=== PATIENT | female | born 1985 | race Hispanic/Latino ===

== ENCOUNTER 2022-04-22 13:32 | Emergency (ER) | payer SELFPAY ==
[2022-04-22] MEDS ORDERED: NA CHLORIDE 0.9% 1,000 ML ONE (16:26)
[2022-04-22 18:40] LABS: Hematocrit 41.2 % (36.0-45.0); Lymphocytes % 29.6 % (15.3-44.8); MPV 8.2 fL (7.6-11.3); RBC Red Blood Cell Count 4.86 M/uL (3.86-4.86)
[2022-04-22 18:53] LABS: BUN Blood Urea Nitrogen 12 mg/dL (7-18); Bicarbonate 22 mmol/L (21-32); Glomerular Filtration Rate 116 ml/min (=/>90); Glucose Level 81 mg/dL (74-106); Sodium Level 137 mmol/L (136-145)
[2022-04-22 19:07] LABS: Potassium 4.4 mmol/L (3.5-5.1)
[2022-04-22 19:25] LABS: HCG, Quantitative < 1 mIU/mL (1-3)
--- NOTE | 2022-04-22 19:26 | RAD REPORT ---
EXAM DESCRIPTION: US - Transvaginal Study Probe - 04/22/2022 7:18 pm CLINICAL HISTORY: Pelvic pain and vaginal bleeding COMPARISON: none FINDINGS: The uterus measures 7 x 3 x 4 cm. A fibroid is not seen. The uterus is retroverted. Subopt imal visualization of the endometrial stripe. No gross abnormality noted. Neither ovary seen secondary to overlying bowel gas The right and left adnexa unremarkable No significant free fluid is seen. IMPRESSION: Retroverted uterus Suboptimal evaluation of the endometrial stripe without visualization of a gross abnormality
--- NOTE | 2022-04-22 19:35 | ER ---
Nurse's Notes [facility] Name: Juliann Tolentino Age: 37 yrs Sex: Female : 1985 Arrival Date: 04/22/2022 Time: 13:34 Bed 14 Private MD: Diagnosis: Abnormal uterine and vaginal bleeding, unspecified Presentation: 04/22 14:21 Chief complaint: Patient states: heavy bleeding with clots since Tuesday; states took a vg1 test and one stated positive and another was negative. Stated the first couple of days was changing a pad every hour; states lower ABD pain. Coronavirus screen: Vaccine status: Patient reports receiving the 2nd dose of the covid vaccine. Client denies travel out of the [place] in the last 14 days. Ebola Screen: Patient denies exposure to infectious person. Patient denies travel to an Ebola-affected area in the 21 days before illness onset. Initial Sepsis Screen: Does the patient meet any 2 criteria? No. Patient's initial sepsis screen is negative. Does the patient have a suspected source of infection? No. Patient's initial sepsis screen is negative. Risk Assessment: Do you want to hurt yourself or someone else? Patient reports no desire to harm self or others. Onset of symptoms was April 19, 2022. 14:21 Method Of Arrival: Ambulatory [facility] 14:21 Acuity: CORY 3 vg1 DENTIST PRIVATE PRACTICE: 15:52 LMP 04/22/2022 ap3 Historical: - Allergies: 14:36 No Known Allergies; vg1 - PMHx: 16:52 None; ap3 - Immunization history:: Adult Immunizations unknown. - Social history:: Smoking status: unknown. Screenin:51 Abuse screen: Denies threats or abuse. Nutritional screening: No deficits noted. ap3 Tuberculosis screening: No symptoms or risk factors identified. Fall Risk None identified. Assessment: 15:52 General: Appears in no apparent distress. uncomfortable, Behavior is calm, cooperative. ap3 Pain: Complains of pain in suprapubic area. Neuro: Level of Consciousness is awake, alert, obeys commands, Oriented to person, place, time, situation, Appropriate for age Gait is steady, Speech is normal. Cardiovascular: Patient's skin is warm and dry. Respiratory: Airway is patent Respiratory effort is even, unlabored. : Vaginal discharge is bloody, Reports vaginal bleeding that is with clots, heavy flow. 16:52 Reassessment: Patient and/or family updated on plan of care and expected duration. Pain ap3 level reassessed. Patient is alert, oriented x 3, equal unlabored respirations, skin warm/dry/pink. 18:12 Reassessment: Patient and/or family updated on plan of care and expected duration. Pain ap3 level reassessed. Patient is alert, oriented x 3, equal unlabored respirations, skin warm/dry/pink. 18:54 Reassessment: Patient and/or family updated on plan of care and expected duration. Pain ap3 level reassessed. Patient is alert, oriented x 3, equal unlabored respirations, skin warm/dry/pink. 20:16 Reassessment: The provider gave the pt dc instructions using the set up worker on a cart. audie The pt acknowledged understanding. Vital Signs: 14:21 BP 152 / 100; Pulse 90; Resp 16; Temp 98.2; Pulse Ox 99% ; Weight 81.65 kg; Height 5 vg1 ft. 2 in. (157.48 cm); Pain 8/10; 18:54 BP 150 / 96; Pulse 87; Pulse Ox 100% on R/A; ap3 14:21 Body Mass Index 32.92 (81.65 kg, 157.48 cm) vg1 ED Course: 13:34 Patient arrived in ED. mr 14:23 Triage completed. vg1 14:40 Inserted saline lock: 22 gauge in right wrist, using aseptic technique. Blood collected.ap3 14:55 Enzo Castellano PA is PHCP. jm 14:55 Leandro Tay MD is Attending Physician. jmm 15:30 Enzo Castellano PA is PHCP. jmm 15:30 Leandro Tay MD is Attending Physician. jmm 15:51 Maddy Lilly, AMY is Primary Nurse. ap3 15:51 Arm band placed on right wrist. ap3 15:53 Patient has correct armband on for positive identification. Bed in low position. Call ap3 light in reach. Side rails up X 1. Adult w/ patient. Pulse ox on. NIBP on. Door closed. Noise minimized. 19:19 Transvaginal Study Probe In Process Unspecified. EDMS 19:34 Anaya Mayes MD is Referral Physician. jmm 20:14 No provider procedures requiring assistance completed. audie 20:15 intact, bleeding controlled, No redness/swelling at site. Pressure dressing applied. audie Administered Medications: 16:49 Drug: NS 0.9% 1000 ml Route: IV; Rate: 1 bolus; Site: right antecubital; ap3 Medication: 15:53 VIS not applicable for this client. ap3 Outcome: 19:35 Discharge ordered by . jmm 20:15 Condition: stable audie 20:15 Discharged to home ambulatory, with family. audie 20:15 Discharge instructions given to patient, Instructed on discharge instructions, follow up and referral plans. Demonstrated understanding of instructions, follow-up care, medications, Prescriptions given X 1. 20:17 Patient left the ED. audie Signatures: Dispatcher [employer] EDMS Enzo Castellano PA PA jmm Rivera, Mary mr LillyMaddy RN RN itz3 Lashay Shah, RN RN vg1 Bianca Vega RN RN audie
--- NOTE | 2022-04-22 19:36 | EDPHYS ---
Physician Documentation [facility] Name: Juliann Tolentino Age: 37 yrs Sex: Female : 1985 Arrival Date: 04/22/2022 Time: 13:34 Bed 14 Private MD: SARAN Physician Leandro Tay HPI: 04/22 15:30 This 37 yrs old Female presents to ER via Ambulatory with complaints of jmm Vaginal Bleeding. 15:30 The patient presents with vaginal bleeding that is. Onset: The symptoms/episode jmm began/occurred gradually, 1 month(s) ago. Modifying factors: The symptoms are alleviated by nothing, the symptoms are aggravated by nothing. Associated signs and symptoms: Pertinent positives: cramping, vaginal bleeding. The patient has not experienced similar symptoms in the past. MAIL ROOM: 15:52 LMP 04/22/2022 ap3 Historical: - Allergies: 14:36 No Known Allergies; vg1 - PMHx: 16:52 None; ap3 - Immunization history:: Adult Immunizations unknown. - Social history:: Smoking status: unknown. ROS: 15:30 Constitutional: Negative for fever, chills, and weight loss, Cardiovascular: Negative jmm for chest pain, palpitations, and edema, Respiratory: Negative for shortness of breath, cough, wheezing, and pleuritic chest pain. 15:30 : Positive for vaginal bleeding. 15:30 All other systems are negative. Exam: 15:30 Constitutional: This is a well developed, well nourished patient who is awake, alert, jmm and in no acute distress. Head/Face: atraumatic. Eyes: EOMI, no conjunctival erythema appreciated ENT: Moist Mucus Membranes Neck: Trachea midline, Supple Chest/axilla: Normal chest wall appearance and motion. Cardiovascular: Regular rate and rhythm. No edema appreciated Respiratory: Normal respirations, no respiratory distress appreciated Abdomen/GI: Non distended, soft Back: Normal ROM Skin: General appearance color normal MS/ Extremity: Moves all extremities, no obvious deformities appreciated, no edema noted to the lower extremities Neuro: Awake and alert Psych: Behavior is normal, Mood is normal, Patient is cooperative and pleasant Vital Signs: 14:21 BP 152 / 100; Pulse 90; Resp 16; Temp 98.2; Pulse Ox 99% ; Weight 81.65 kg; Height 5 vg1 ft. 2 in. (157.48 cm); Pain 8/10; 18:54 BP 150 / 96; Pulse 87; Pulse Ox 100% on R/A; ap3 14:21 Body Mass Index 32.92 (81.65 kg, 157.48 cm) vg1 MDM: 15:30 Patient medically screened. junie 19:34 Data reviewed: vital signs, nurses notes. Counseling: I had a detailed discussion with enid the patient and/or guardian regarding: the historical points, exam findings, and any diagnostic results supporting the discharge/admit diagnosis, lab results, radiology results, the need for outpatient follow up, to return to the emergency department if symptoms worsen or persist or if there are any questions or concerns that arise at home. 04/22 15:48 Order name: Abo/rh Typing; Complete Time: 19:13 [facility] 04/22 15:48 Order name: Basic Metabolic Panel; Complete Time: 19:30 [facility] 04/22 15:48 Order name: CBC with Diff; Complete Time: 19:00 [facility] 04/22 15:48 Order name: Quantitative Hcg; Complete Time: 19:30 [facility] 04/22 19:49 Order name: ABO/RH no charge; Complete Time: 20:02 [facility] 04/22 15:48 Order name: IV Saline Lock; Complete Time: 16:45 [facility] 04/22 15:48 Order name: Labs collected and sent; Complete Time: 16:45 [facility] 04/22 15:48 Order name: NPO; Complete Time: 15:54 [facility] 04/22 17:10 Order name: Labs - recollect needed: green, abo, new band; Complete Time: 18:59 04/22 19:19 Order name: Transvaginal Study Probe; Complete Time: 19:30 EDGA Administered Medications: 16:49 Drug: NS 0.9% 1000 ml Route: IV; Rate: 1 bolus; Site: right antecubital; ap3 Disposition Summary: 04/22/22 19:35 Discharge Ordered Location: Home [facility] Condition: Stable [facility] Diagnosis - Abnormal uterine and vaginal bleeding, unspecified [facility] Followup: [facility] - With: Anaya Mayes MD - When: 2 - 3 days - Reason: Recheck today's complaints, Continuance of care, Re-evaluation by your physician Discharge Instructions: - Discharge Summary Sheet [facility] - Abnormal Uterine Bleeding [facility] Forms: - Medication Reconciliation Form [facility] - Thank You Letter [facility] - Antibiotic Education [facility] - Prescription Opioid Use [facility] Prescriptions: - Ultracet 37.5-325 mg Oral Tablet - take 1 tablet by ORAL route every 6 hours - for up to 5 days; do not exceed 8 jmm tablets per day.; 12 tablet; Refills: 0, Product Selection Permitted Signatures: Dispatcher [employer] EDGA Leandro Tay MD MD cha Mickail, Joel, PA PA jmm Williams, Irene, RN Maddy Anguiano RN RN ap3 Lashay Shah RN RN vg1 Corrections: (The following items were deleted from the chart) 19:19 17:44 Pelvis Complete+US.RAD.BRZ ordered. [facility]
[2022-04-22 20:43] VITALS: TEMP 98.2
[2022-04-22 20:45] VITALS: BP 150/96; O2SAT 100
== END 2022-04-22 20:17 | disposition home or self-care (01) ==
LOC: ER 13:32
DX: N93.9 Abnormal uterine and vaginal bleeding, unspecified (principal)
CPT/HCPCS: 36415; 76830; 80048; 84702; 85025; 86900; 86901; 99284; J7030